=== PATIENT | male | born 1995 | race Caucasian/White ===

== ENCOUNTER 2017-08-10 21:33 | Emergency (ER) | payer OTHER, SELFPAY ==
[2017-08-10 21:35] VITALS: BP 129/56; PULSE 76; RESP 32; TEMP 36.8; O2SAT 100
[2017-08-10 21:45] VITALS: BP 120/61; PULSE 67; RESP 24; O2SAT 99
[2017-08-10 21:50] VITALS: BP 106/49; PULSE 61; RESP 23; O2SAT 100
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
[2017-08-10] MEDS: SODIUM CHLORIDE 0.9% 1,000 ML 1000 ML IV (22:04)
[2017-08-10 22:15] LABS: Add Manual Diff / Slide Review NO; Basophils Percent Auto 0.5 % (0-2); Eosinophils Percent Auto 0.4 % (2-4); Hemoglobin 15.4 g/dL (13.5-17.5); Lymphocytes Percent Auto 11.9 % (25-40); Mean Corpuscular HGB Conc 35.1 % (30-36); Mean Corpuscular Hemoglobin 30.9 PG (26-34); Mean Corpuscular Volume 88.1 fL (80-100); Monocytes Percent Auto 3.7 % (3-14); Neutrophils Absolute Auto 11500 /uL (3000-5900); Neutrophils Percent Auto 83.5 % (50-75); Red Blood Cell Count 4.99 X10^6/uL (4.5-5.9); White Blood Cell Count 13.8 X10^3/uL (4.5-11.0)
[2017-08-10 22:21] LABS: Alanine Aminotransferase 25 IU/L (21-72); Albumin 4.9 g/dL (3.5-5.0); Albumin Globulin Ratio 1.7 (1.0-2.8); Alkaline Phosphatase 63 U/L (38-126); Aspartate Aminotransferase 27 IU/L (17-59); BUN Creatinine Ratio 26.3 (6-22); Bilirubin Total 0.7 mg/dL (0.2-1.3); Blood Urea Nitrogen 21 mg/dL (9-20); Calcium 9.8 mg/dL (8.4-10.2); Carbon Dioxide 24 mmol/L (22-32); Chloride 101 mmol/L (98-107); Estimated Glomerular Filt Rate > 60.0 mL/min (>60); Globulin 2.9 g/dL (1.7-4.1); Glucose 111 mg/dL (70-100); HEMOLYSIS < 15 (0-50); Lipase 60 U/L (23-300); Potassium 3.7 mmol/L (3.4-5.1); Sodium 142 mmol/L (137-145); Total Protein 7.8 g/dL (6.3-8.2)
[2017-08-10 22:45] VITALS: BP 119/57; PULSE 64; RESP 98
[2017-08-10 23:09] VITALS: BP 133/68; PULSE 70; RESP 20; O2SAT 100
[2017-08-10 23:22] LABS: Hematocrit 30.1 % (41-53); Hemoglobin 10.6 g/dL (13.5-17.5)
[2017-08-10] MEDS: MORPHINE 5 MG/ML INJ IV (23:22)
[2017-08-10] MEDS: ONDANSETRON 4 MG/2 ML INJ IV (23:22)
[2017-08-10 23:37] VITALS: BP 129/61; PULSE 63; RESP 18; O2SAT 98
== END 2017-08-11 00:15 | disposition short-term general hospital (02) ==
PROVIDERS: Emergency Provider Emergency Medicine; PCP Family Medicine
DX: R58 Hemorrhage, not elsewhere classified (principal); M25.512 Pain in left shoulder; V29.9XXA Motorcycle rider (driver) (passenger) injured in unspecified traffic accident, initial encounter
CPT/HCPCS: 36591; 70450; 71260; 74177; 80053; 83690; 85014; 85018; 85025; 86850; 86900; 86901; 96361; 96374; 96375; 99283; J2270; J2405; Q9967

== ENCOUNTER → 2018-07-05 10:28 | Outpatient (CLI) | payer OTHER, SELFPAY ==
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
== END ==
PROVIDERS: PCP Family Medicine; Visit Provider Family Medicine
DX: M25.511 Pain in right shoulder (principal); S43.101A Unspecified dislocation of right acromioclavicular joint, initial encounter
CPT/HCPCS: 73030; 73050

== ENCOUNTER → 2019-12-23 11:47 | Outpatient (CLI) | payer OTHER, SELFPAY ==
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
== END ==
PROVIDERS: PCP Family Medicine; Referring Provider Family Medicine; Visit Provider Family Medicine
DX: M79.671 Pain in right foot (principal); M19.071 Primary osteoarthritis, right ankle and foot
CPT/HCPCS: 73630

== ENCOUNTER → 2021-02-12 13:53 | Outpatient (CLI) | payer OTHER, SELFPAY ==
[2021-02-12 16:06] LABS: COVID19 -Nasal RAPID Negative (Negative)
== END ==
PROVIDERS: PCP Family Medicine; Visit Provider Nurse Practitioner Family
DX: Z20.822 Contact with and (suspected) exposure to COVID-19 (principal)
CPT/HCPCS: 87635

== ENCOUNTER 2022-01-31 09:14 | Emergency (ER) | payer OTHER, SELFPAY ==
[2022-01-31 09:33] VITALS: BP 132/71; PULSE 56; RESP 14; TEMP 36.4; O2SAT 99; BMI 24.3
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
[2022-01-31 10:01] LABS: Add Manual Diff / Slide Review NO; Basophils Absolute Auto 0 /uL (0-100); Basophils Percent Auto 0.8 % (0-2); Eosinophils Absolute Auto 400 /uL (0-450); Eosinophils Percent Auto 6.3 % (2-4); Hematocrit 41.1 % (41-53); Hemoglobin 14.4 g/dL (13.5-17.5); Lymphocytes Absolute Auto 1600 /uL (1100-4500); Lymphocytes Percent Auto 27.3 % (25-40); Mean Corpuscular HGB Conc 35.1 % (30-36); Mean Corpuscular Hemoglobin 31.3 PG (26-34); Mean Corpuscular Volume 89.3 fL (80-100); Monocytes Absolute Auto 500 /uL (0-900); Neutrophils Absolute Auto 3300 /uL (1500-7000); Neutrophils Percent Auto 57.6 % (50-75); Platelet Count 265 X10^3/uL (150-400); Red Blood Cell Count 4.61 X10^6/uL (4.5-5.9); Red Cell Distribution Width 12.7 % (11.6-14.8); White Blood Cell Count 5.7 X10^3/uL (4.5-11.0)
[2022-01-31 10:07] LABS: INR 1.2 (0.9-1.3); Prothrombin Time 13.8 SECONDS (10.1-12.7)
[2022-01-31 10:09] LABS: PTT Partial Thromboplastin Tim 31 SECONDS (26-36)
[2022-01-31 10:12] LABS: Lactate (Lactic Acid) 0.8 mmol/L (0.7-2.1)
[2022-01-31 10:13] LABS: Alanine Aminotransferase 104 IU/L (<50); Albumin 4.3 g/dL (3.5-5.0); Albumin Globulin Ratio 1.3 (1.0-2.8); Alkaline Phosphatase 58 U/L (38-126); Aspartate Aminotransferase 59 IU/L (17-59); BUN Creatinine Ratio 10.7 (6-22); Blood Urea Nitrogen 9 mg/dL (9-20); Calcium 9.2 mg/dL (8.4-10.2); Carbon Dioxide 30 mmol/L (22-32); Chloride 104 mmol/L (98-107); Creatine Kinase 192 U/L (55-170); Estimated Glomerular Filt Rate > 60 mL/min (>60); Globulin 3.3 g/dL (1.7-4.1); Glucose 90 mg/dL (70-100); HEMOLYSIS < 15 (0-50); Lipase 22 U/L (23-300); Potassium 4.1 mmol/L (3.4-5.1); Sodium 141 mmol/L (137-145); Total Protein 7.6 g/dL (6.3-8.2)
[2022-01-31 10:23] LABS: Troponin I < 0.012 ng/mL (0.01-0.034)
[2022-01-31 10:28] LABS: CKMB % Relative Index 0.4 % (1.5-5.0); Creatine Kinase MB 0.68 ng/mL (<2.37)
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
[2022-01-31 11:27] LABS: Bacteria Urine Few (2-10); Culture Indicated Urine Cult Not Indicated; RBC Urine 5-10/HPF (0-5/HPF); WBC Urine 0-1/HPF (0-5/HPF)
[2022-01-31 13:42] VITALS: BP 124/61; PULSE 61; RESP 17; O2SAT 99
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
== END 2022-01-31 14:17 | disposition home or self-care (01) ==
PROVIDERS: Emergency Medicine; Emergency Provider Student in an Organized Health Care Education/Training Program; PCP Family Medicine
DX: S09.90XA Unspecified injury of head, initial encounter (principal); M25.551 Pain in right hip; R07.89 Other chest pain; R31.9 Hematuria, unspecified; V86.65XA Passenger of 3- or 4- wheeled all-terrain vehicle (ATV) injured in nontraffic accident, initial encounter
CPT/HCPCS: 36415; 71045; 71260; 72170; 74177; 80053; 81003; 81015; 82550; 82553; 83605; 83690; 84484; 85025; 85610; 85730; 99284; Q9967

== ENCOUNTER 2022-08-05 20:12 | Emergency (ER) | payer OTHER, SELFPAY ==
[2022-08-05] VITALS (27 sets, daily range): BP systolic 82–135; BP diastolic 39–76; PULSE 67–100; RESP 12–23; TEMP 37.3; O2SAT 96–100; BMI 24.1
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
--- NOTE | 2022-08-05 20:36 | DI.RAD.S_ITS ---
PROCEDURE: XR RIBS LT MIN 3V W CXR1V INDICATIONS: L posterior lower rib pain TECHNIQUE: 3 views of the left ribs were acquired, along with a single view chest. COMPARISON: [facility], CR, XR HIP W PEL IF DONE LT 2V, 08/05/2022, 20:21. [facility], CR, XR KNEE RT 3V, 08/05/2022, 20:21. [facility], CT, CT CHEST ABD PEL W CON, 01/31/2022, 11:34. FINDINGS: Surgical changes and devices: None. Bones and chest wall: No fractures or dislocations. No suspicious bony lesions. Overlying soft tissues appear unremarkable. Lungs and pleura: No pleural effusions or pneumothorax. Lungs appear clear. Mediastinum: Mediastinal contours appear normal. Heart size is normal. IMPRESSION: No displaced rib fracture or pneumothorax is identified. If there is strong clinical concern for chest trauma in this patient, please consider a follow-up chest CT with IV contrast for further evaluation. Dictated by: Mt Khan M.D. on 08/05/2022 at 20:44 Approved by: Mt Khan M.D. on 08/05/2022 at 20:44
--- NOTE | 2022-08-05 20:36 | PC.NURSE ---
Provider at bedside. No c-collar at this time per provider.
--- NOTE | 2022-08-05 22:19 | PC.NURSE ---
pt could stand but was unable to ambulate with walker
[2022-08-05] MEDS: HYDROCODONE/ACET 5/325 TABLET 1 TAB PO (22:23)
--- NOTE | 2022-08-05 22:24 | PC.NURSE ---
Provider made aware of ambulation trial and patient vitals. Pt reported I almost passed out related to pain. Provider aware. No new orders at this time. Medicated per MAY.
--- NOTE | 2022-08-05 23:42 | PC.NURSE ---
Second ambulation trial. Pt sits at edge of bed, reports feeling OK. Once standing pt reports worsening left hip pain, unable to bear weight and feels dizzy. Pt assisted back to bed. Pt vitals taken. Provider made aware of situation.
--- NOTE | 2022-08-05 23:44 | DI.CT.S_ITS ---
PROCEDURE: CT HIP LEFT WITHOUT CON INDICATIONS: eval for fracture TECHNIQUE: Noncontrast 3 mm axial sections acquired through the bony pelvis, with coronal and sagittal reformatting. COMPARISON: [facility], CR, XR RIBS LT MIN 3V W CXR1V, 08/05/2022, 20:40. [facility], CR, XR HIP W PEL IF DONE LT 2V, 08/05/2022, 20:21. [facility], CR, XR KNEE RT 3V, 08/05/2022, 20:21. [facility], CT, CT CHEST ABD PEL W CON, 01/31/2022, 11:34. FINDINGS: Image quality: Excellent. Bones: There is a mildly displaced fracture seen involving the left iliac wing. No additional fractures are detected. Soft tissues: No dilated loops of small bowel are seen. No significant colonic abnormality is seen. No bladder wall thickening is seen. No enlarged inguinal or pelvic lymph nodes can be seen. IMPRESSION: Mildly displaced fracture involving the left iliac wing. Dictated by: Mt Khan M.D. on 08/05/2022 at 23:20 Approved by: Mt Khan M.D. on 08/05/2022 at 23:22
[2022-08-05] MEDS: SODIUM CHLORIDE 0.9% 1,000 ML 1000 ML IV (23:56)
[2022-08-05 23:59] LABS: Add Manual Diff / Slide Review NO; Basophils Absolute Auto 100 /uL (0-100); Basophils Percent Auto 0.5 % (0-2); Eosinophils Absolute Auto 200 /uL (0-450); Eosinophils Percent Auto 0.9 % (2-4); Hematocrit 39.2 % (41-53); Hemoglobin 13.7 g/dL (13.5-17.5); Lymphocytes Absolute Auto 2500 /uL (1100-4500); Lymphocytes Percent Auto 14.8 % (25-40); Mean Corpuscular HGB Conc 34.9 % (30-36); Mean Corpuscular Hemoglobin 30.6 PG (26-34); Mean Corpuscular Volume 87.5 fL (80-100); Monocytes Absolute Auto 1300 /uL (0-900); Monocytes Percent Auto 7.5 % (3-14); Neutrophils Absolute Auto 13000 /uL (1500-7000); Neutrophils Percent Auto 76.3 % (50-75); Platelet Count 306 X10^3/uL (150-400); Red Blood Cell Count 4.48 X10^6/uL (4.5-5.9); Red Cell Distribution Width 13.3 % (11.6-14.8)
[2022-08-06] VITALS (8 sets, daily range): BP systolic 95–129; BP diastolic 53–67; PULSE 76–95; RESP 12–15; O2SAT 95–100
[2022-08-06 00:13] LABS: BUN Creatinine Ratio 17.6 (6-22); Blood Urea Nitrogen 16 mg/dL (9-20); Carbon Dioxide 27 mmol/L (22-32); Chloride 101 mmol/L (98-107); Estimated Glomerular Filt Rate > 60 mL/min (>60); Glucose 99 mg/dL (70-100); HEMOLYSIS < 15 (0-50); Potassium 3.6 mmol/L (3.4-5.1); Sodium 135 mmol/L (137-145)
[2022-08-06] MEDS: HYDROCODONE/ACET 5/325 TABLET 1 TAB PO (00:24)
[2022-08-06] MEDS: HYDROCODONE/ACET 5/325 PREPACK 1 BOTTLE MISC (01:26)
== END 2022-08-06 01:40 | disposition home or self-care (01) ==
PROVIDERS: Emergency Provider Emergency Medicine; PCP Family Medicine
DX: S32.392A Other fracture of left ilium, initial encounter for closed fracture (principal); M25.561 Pain in right knee; R07.81 Pleurodynia; V93.83XA Other injury due to other accident on board other powered watercraft, initial encounter
CPT/HCPCS: 36415; 71101; 73502; 73562; 73700; 80048; 85025; 99284; 99285

== ENCOUNTER → 2022-08-15 10:18 | Outpatient (CLI) | payer OTHER, SELFPAY | PROVIDERS: PCP Family Medicine; Visit Provider Registered Nurse | DX: J02.9 Acute pharyngitis, unspecified (principal) | CPT/HCPCS: 87070; 87147 ==

== ENCOUNTER → 2023-11-15 19:27 | Outpatient (CLI) | payer BC, SELFPAY ==
--- NOTE | 2023-11-15 19:28 | DI.RAD.S_ITS ---
PROCEDURE: XR SHOULDER RT MIN 2V INDICATIONS: Right shoulder pain TECHNIQUE: 3 views of the shoulder were acquired. COMPARISON: None. FINDINGS: Bones: No fractures or dislocations. No suspicious bony lesions. Visualized ribs appear intact. Acromioclavicular joint space narrowing with osteophytosis. Soft tissues: No suspicious soft tissue calcifications. IMPRESSION: Moderate acromioclavicular osteoarthritis. Dictated by: Jaime Min M.D. on 11/16/2023 at 10:52 Approved by: Jaime Min M.D. on 11/16/2023 at 10:52
== END ==
LOC: RAD 19:27
PROVIDERS: Referring Provider Nurse Practitioner Family; Visit Provider Nurse Practitioner Family
DX: M19.011 Primary osteoarthritis, right shoulder (principal); M25.511 Pain in right shoulder
CPT/HCPCS: 73030

== ENCOUNTER → 2024-06-26 18:52 | Outpatient (CLI) | payer BC, SELFPAY ==
--- NOTE | 2024-06-26 | DI.MRI.S_ITS ---
PROCEDURE: MR SHOULDER RT WO CON INDICATIONS: rt shoulder pain. separation acromicoclav joint TECHNIQUE: Noncontrast oblique coronal T2 fast spin echo with fat saturation, oblique sagittal T1 spin echo and T2 fast spin echo with fat saturation, axial T1 spin echo and T2 fast spin echo with fat saturation through the shoulder. COMPARISON: [facility], CR, XR SHOULDER RT MIN 2V, 11/15/2023, 19:25. FINDINGS: Image quality: Excellent. Rotator cuff: Mild supraspinatus tendinosis. Low-grade partial bursal surface tearing of the supraspinatus tendon at the distal insertion. Mild infraspinatus tendinosis. Teres minor and subscapularis tendons are intact. No significant rotator cuff muscle atrophy. Bones and bursae: No acute trabecular bone injury or fracture. Small chronic traction cystic changes are seen at the posterior superior humeral head. No focal glenohumeral cartilage defect. Acromioclavicular joint is normally aligned. Coracoclavicular ligament is intact. Trace fluid in the subacromial/subdeltoid bursa. No significant glenohumeral effusion. Capsule and soft tissues: No displaced labral tear. Proximal biceps long head tendon is intact. A partial effacement of the fat signal in the rotator interval. Anterior band of the inferior glenohumeral ligament appears thickened. IMPRESSION: 1. Focal low-grade partial bursal sided tearing of the supraspinatus tendon at the distal insertion superimposed on mild supraspinatus and infraspinatus tendinosis. 2. No acute trabecular bone injury. Acromioclavicular joint is normally aligned. 3. No displaced labral tear. Proximal biceps long head tendon is intact. 4. Partial effacement of the rotator interval fat and mild thickening of the inferior glenohumeral ligament are nonspecific, but can be seen in the setting of the clinical syndrome of adhesive capsulitis. Approved by: Campbell Hernández M.D. on 06/27/2024 at 3:42
== END ==
PROVIDERS: PCP Family Medicine; Referring Provider Orthopaedic Surgery; Visit Provider Orthopaedic Surgery
DX: M25.511 Pain in right shoulder (principal); M75.111 Incomplete rotator cuff tear or rupture of right shoulder, not specified as traumatic; S43.109A Unspecified dislocation of unspecified acromioclavicular joint, initial encounter
CPT/HCPCS: 73221